=== PATIENT | female | born 1965 | race Caucasian/White ===

== ENCOUNTER 2019-05-01 11:33 | Inpatient (IN) | payer MEDICAID ==
[2019-05-01] MEDS ORDERED: Sodium Chloride 0.9% 10 ML Syringe FLUSH PRN ×2 (12:38→16:36)
[2019-05-01] MEDS ORDERED: Lactated Ringers 1,000 ML IV ONE ×2 (12:38→13:55)
--- NOTE | 2019-05-01 12:49 | EDM.PDOC ---
ED HPI GENERAL MEDICAL PROBLEM - General Chief Complaint: Gastrointestinal Problem Stated Complaint: LOOSE STOOL Time Seen by Provider: 05/01/19 12:28 Source of Information: Reports: Patient, Family, Provider, RN Notes Reviewed History Limitations: Reports: No Limitations - History of Present Illness INITIAL COMMENTS - FREE TEXT/NARRATIVE: 54-year-old female presents emergency department today complaint of nausea and diarrhea, she has been ill for the last 4 days describes some vague abdominal pain and cramping in nature stools have been loose and watery. Realize she just developed a fever today. Was initially evaluated in clinic and then sent to the emergency department by her primary care provider Dr. Casanova. 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 Denies: Fatigue HEENT: Reports: No Symptoms Respiratory: Reports: No Symptoms Cardiovascular: Reports: No Symptoms GI/Abdominal: Reports: Nausea. Denies: Vomiting : Reports: Other (Dark colored urine) Musculoskeletal: Reports: No Symptoms Skin: Reports: No Symptoms ED EXAM, GI/ABD - Physical Exam Exam: See Below Text/Narrative:: General: Female, not in any distress, skin slightly jaundiced appearing, alert and oriented x3 HEENT: head is atraumatic normocephalic, eyes pupils equal round reactive to light, sclera slight jaundice no conjunctivitis appreciated. Ears tympanic membranes clear and tang landmarks and light reflex are present bilaterally canals are clear. Nose no septal deviation, nares are clear, no blood present. Mouth mucosa is moist and pink no erythema or exudate noted in soft palate, tongue is midline uvula is midline, dentition is intact. Neck: Supple no thyromegaly no tracheal deviation. Nodes: Cervical nodes subclavicular nodes nontender no palpable lymphadenopathy noted. Lungs: clear to auscultation bilaterally with symmetrical respirations, no adventitious noise appreciated. CV: Regular rate and rhythm S1 and S2 appreciated no murmurs rubs or gallops noted. Abdomen: Soft, tender right upper quadrant, no palpable masses or organomegaly appreciated, no distention no guarding bowel sounds are present, . Neuro: GCS 15 Skin: Warm and dry, intact Extremities: No lower extremity edema appreciated, pedal pulse is +2. Course - Vital Signs Last Recorded V/S: Last Vital Signs Temp 101.1 F H 05/01/19 13:59 Pulse 76 05/01/19 15:15 Resp 16 05/01/19 15:15 BP 109/57 L 05/01/19 15:15 Pulse Ox 100 05/01/19 15:15 - Orders/Labs/Meds Orders: Active Orders 24 hr Category Date Time Status Peripheral IV Care [RC] . DIRECTED Care 05/01/19 12:38 Active Vital Signs [RC] Q1H Care 05/01/19 12:35 Active Abdomen Ltd [US] Stat Exams 05/01/19 14:21 Ordered CLOSTRIDIUM DIFFICILE BY PCR [RM] Stat Lab 05/01/19 12:39 Ordered CULTURE BLOOD [BC] Urgent Lab 05/01/19 12:40 Received CULTURE BLOOD [BC] Urgent Lab 05/01/19 12:45 Received CULTURE STOOL + SHIGATOX [RM] Stat Lab 05/01/19 12:39 Ordered CULTURE URINE [RM] Urgent Lab 05/01/19 15:23 Ordered WBC, STOOL [OP] Stat Lab 05/01/19 12:39 Ordered Lactated Ringers [Ringers, Lactated] 1,000 ml Med 05/01/19 13:55 Active IV BOLUS Sodium Chloride 0.9% [Saline Flush] Med 05/01/19 12:38 Active 10 ml FLUSH ASDIRECTED PRN Blood Culture x2 Reflex Set [OM.PC] Urgent Oth 05/01/19 12:35 Ordered Isolation [COMM] Stat Oth 05/01/19 12:40 Ordered Peripheral IV Insertion Adult [OM.PC] Urgent Oth 05/01/19 12:38 Ordered Medication Orders Lactated Ringer's (Ringers, Lactated) 1,000 mls @ 500 mls/hr IV BOLUS ONE Stop: 05/01/19 15:54 Last Admin: 05/01/19 13:58 Dose: 500 mls/hr Sodium Chloride (Saline Flush) 10 ml FLUSH ASDIRECTED PRN PRN Reason: Keep Vein Open Last Admin: 05/01/19 15:14 Dose: 10 ml Labs: Laboratory Tests 05/01/19 05/01/19 05/01/19 Range/Units 12:40 12:40 12:40 PT (9.5-12.0) sec INR (0.80-1.20) Lactic Acid 1.7 (0.4-2.0) mmol/L Lactate Dehydrogenase 1203 H (82-234) U/L C-Reactive Protein 26.41 H (0.0-0.3) mg/dL Lipase (73-393) U/L Procalcitonin 2.53 H* ng/mL Urine Color (YELLOW) Urine Appearance (CLEAR) Urine pH (5.0-8.0) Ur Specific [place] (1.008-1.030) Urine Protein (NEGATIVE) mg/dL Urine Glucose (UA) (NEGATIVE) mg/dL Urine Ketones (NEGATIVE) mg/dL Urine Occult Blood (NEGATIVE) Urine Nitrite (NEGATIVE) Urine Bilirubin (NEGATIVE) Urine Urobilinogen (0.2-1.0) EU/dL Ur Leukocyte Esterase (NEGATIVE) Urine RBC (0-5) Urine WBC (0-5) Ur Epithelial Cells Amorphous Sediment Urine Bacteria Urine Mucus Ethyl Alcohol mg/dL 05/01/19 05/01/19 05/01/19 Range/Units 12:40 12:40 12:40 PT 10.6 (9.5-12.0) sec INR 0.98 (0.80-1.20) Lactic Acid (0.4-2.0) mmol/L Lactate Dehydrogenase (82-234) U/L C-Reactive Protein (0.0-0.3) mg/dL Lipase 246 (73-393) U/L Procalcitonin ng/mL Urine Color (YELLOW) Urine Appearance (CLEAR) Urine pH (5.0-8.0) Ur Specific [place] (1.008-1.030) Urine Protein (NEGATIVE) mg/dL Urine Glucose (UA) (NEGATIVE) mg/dL Urine Ketones (NEGATIVE) mg/dL Urine Occult Blood (NEGATIVE) Urine Nitrite (NEGATIVE) Urine Bilirubin (NEGATIVE) Urine Urobilinogen (0.2-1.0) EU/dL Ur Leukocyte Esterase (NEGATIVE) Urine RBC (0-5) Urine WBC (0-5) Ur Epithelial Cells Amorphous Sediment Urine Bacteria Urine Mucus Ethyl Alcohol < 3 mg/dL 05/01/19 Range/Units 12:52 PT (9.5-12.0) sec INR (0.80-1.20) Lactic Acid (0.4-2.0) mmol/L Lactate Dehydrogenase (82-234) U/L C-Reactive Protein (0.0-0.3) mg/dL Lipase (73-393) U/L Procalcitonin ng/mL Urine Color Yellow (YELLOW) Urine Appearance Cloudy A (CLEAR) Urine pH 6.0 (5.0-8.0) Ur Specific [place] 1.025 (1.008-1.030) Urine Protein >=300 H (NEGATIVE) mg/dL Urine Glucose (UA) Negative (NEGATIVE) mg/dL Urine Ketones 15 H (NEGATIVE) mg/dL Urine Occult Blood Moderate H (NEGATIVE) Urine Nitrite Negative (NEGATIVE) Urine Bilirubin Small H (NEGATIVE) Urine Urobilinogen 0.2 (0.2-1.0) EU/dL Ur Leukocyte Esterase Negative (NEGATIVE) Urine RBC 5-10 H (0-5) Urine WBC 5-10 H (0-5) Ur Epithelial Cells Moderate Amorphous Sediment Few Urine Bacteria Moderate Urine Mucus Not seen Ethyl Alcohol mg/dL Meds: Medications Generic Name Dose Route Start Last Admin Trade Name Freq PRN Reason Stop Dose Admin Lactated Ringer's 1,000 mls @ 500 mls/hr 05/01/19 13:55 05/01/19 13:58 Ringers, Lactated IV 05/01/19 15:54 500 mls/hr BOLUS ONE Administration Sodium Chloride 10 ml 05/01/19 12:38 05/01/19 15:14 Saline Flush FLUSH 10 ml ASDIRECTED PRN Administration Keep Vein Open Discontinued Medications Generic Name Dose Route Start Last Admin Trade Name Freq PRN Reason Stop Dose Admin Lactated Ringer's 1,000 mls @ 999 mls/hr 05/01/19 12:38 05/01/19 12:53 Ringers, Lactated IV 05/01/19 13:38 999 mls/hr BOLUS ONE Administration Ketorolac Tromethamine 30 mg 05/01/19 14:23 05/01/19 14:34 Toradol IVPUSH 05/01/19 14:24 30 mg ONETIME ONE Administration Departure - Departure Time of Disposition: 15:25 Disposition: Admitted As Inpatient 66 Condition: Fair Clinical Impression: Tick-borne disease - Discharge Information Referrals: PCP,None [Primary Care Provider] - Forms: ED Department Discharge - My Orders Last 24 Hours: My Active Orders 05/01/19 12:35 Vital Signs [RC] Q1H Blood Culture x2 Reflex Set [OM.PC] Urgent 05/01/19 12:38 Peripheral IV Care [RC] . DIRECTED Sodium Chloride 0.9% [Saline Flush] 10 ml FLUSH ASDIRECTED PRN Peripheral IV Insertion Adult [OM.PC] Urgent 05/01/19 12:39 CLOSTRIDIUM DIFFICILE BY PCR [RM] Stat CULTURE STOOL + SHIGATOX [RM] Stat WBC, STOOL [OP] Stat 05/01/19 12:40 CULTURE BLOOD [BC] Urgent Isolation [COMM] Stat 05/01/19 12:45 CULTURE BLOOD [BC] Urgent 05/01/19 13:55 Lactated Ringers [Ringers, Lactated] 1,000 ml IV BOLUS 05/01/19 14:21 Abdomen Ltd [US] Stat 05/01/19 15:23 CULTURE URINE [RM] Urgent - Assessment/Plan Last 24 Hours: My Active Orders 05/01/19 12:35 Vital Signs [RC] Q1H Blood Culture x2 Reflex Set [OM.PC] Urgent 05/01/19 12:38 Peripheral IV Care [RC] . DIRECTED Sodium Chloride 0.9% [Saline Flush] 10 ml FLUSH ASDIRECTED PRN Peripheral IV Insertion Adult [OM.PC] Urgent 05/01/19 12:39 CLOSTRIDIUM DIFFICILE BY PCR [RM] Stat CULTURE STOOL + SHIGATOX [RM] Stat WBC, STOOL [OP] Stat 05/01/19 12:40 CULTURE BLOOD [BC] Urgent Isolation [COMM] Stat 05/01/19 12:45 CULTURE BLOOD [BC] Urgent 05/01/19 13:55 Lactated Ringers [Ringers, Lactated] 1,000 ml IV BOLUS 05/01/19 14:21 Abdomen Ltd [US] Stat 05/01/19 15:23 CULTURE URINE [RM] Urgent Plan: Assessment Acuity = acute Site and laterality = tick borne illness Etiology = Ixodes scapularis Manifestations = diarrhea, hyperbilirubinemia Location of injury = Home Lab values = lab work from clinic reveals sodium at 122 consistent hyponatremia potassium 3.2 consistent with hypokalemia AST elevated 144 ALT elevated 48 total bilirubin elevated 1.9 consistent hyperbilirubinemia platelets low at 37 consistent with thrombocytopenia LDH elevated 1203, CRP elevated 26.4 pro- calcitonin elevated 2.5 urinalysis reveals 5-10 RBCs and 5-10 WBCs consistent hematuria and pyuria respectively small amount of bilirubin in the urine Plan Called discussed case hospitalist on-call at 1520 he kindly agreed to come and evaluate patient emergency department for admission This note was dictated using [employer] voice recognition software please call with any questions on syntax or grammar.
[2019-05-01] MEDS ORDERED: Ketorolac 30 MG/ML SDV IVPUSH ONE (14:23)
--- NOTE | 2019-05-01 15:35 | PCM.HP.2 ---
H&P History of Present Illness - General Date of Service: 05/01/19 Admit Problem/Dx: Admission Diagnosis/Problem Admission Diagnosis/Problem Cholecystitis Source of Information: Patient, Family, Provider, RN Notes Reviewed History Limitations: Reports: No Limitations - History of Present Illness Initial Comments - Free Text/Narative: Ms. Goode is a 54-year-old woman who was admitted through the emergency department with fever, myalgias, weakness, secondary to anaplasmosis and possible cholecystitis. She has not felt well over the past 5 days with progressive fever weakness myalgias and headache. She presented to the emergency department today for further evaluation. She also reports history of nausea and diarrhea with 3-4 watery stools per day. On evaluation in the emergency department she is noted to have a low white count as well as significant thrombocytopenia. Bilirubin is elevated at 1.9 and there is mild elevation in transaminase levels. Abdominal ultrasound was obtained showing evidence of sludge within the gallbladder as well as a large free-floating stone , gallbladder wall thickening, but no ductal dilatation. [place] potential for tick exposure from her property as well as cats going in and out of the house. 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 Neurological History: Reports: Headaches, Chronic, Migraines Psychiatric History: Reports: Anxiety - Past Surgical History HEENT Surgical History: Reports: Adenoidectomy, Eye Surgery, Laser Surgery, LASIK, Tonsillectomy Social & Family History - Tobacco Use Smoking Status *Q: Never Smoker Second Hand Smoke Exposure: No - Caffeine Use Caffeine Use: Reports: Tea Other Caffeine Use: large mug of tea - Recreational Drug Use Recreational Drug Use: No H&P Review of Systems - Review of Systems: Review Of Systems: See Below General: Reports: Fever, Chills, Malaise, Weakness, Fatigue, Diaphoresis, Decreased Appetite HEENT: Reports: Headaches. Denies: Hearing Changes, Sinus Congestion, Sore Throat, Vertigo, Visual Changes Pulmonary: Reports: No Symptoms Cardiovascular: Reports: No Symptoms Gastrointestinal: Reports: Abdominal Pain, Anorexia, Diarrhea, Nausea. Denies: Black Stool, Bloody Stool, Constipation, Difficulty Swallowing, Distension, Vomiting Genitourinary: Reports: No Symptoms Musculoskeletal: Reports: Muscle Pain, Muscle Stiffness Skin: Reports: No Symptoms Psychiatric: Reports: No Symptoms Neurological: Reports: No Symptoms Hematologic/Lymphatic: Reports: No Symptoms Immunologic: Reports: No Symptoms Exam - Exam Exam: See Below - Vital Signs Vital Signs: Last Vital Signs Temp 101.1 F H 05/01/19 13:59 Pulse 76 05/01/19 15:15 Resp 16 05/01/19 15:15 BP 109/57 L 05/01/19 15:15 Pulse Ox 100 05/01/19 15:15 Weight: 150 lb - Exam General: Alert, Oriented, Cooperative, Moderate Distress HEENT: Conjunctiva Clear, Hearing Intact, Normal Nasal Septum, Posterior Pharynx Clear, Pupils Equal. No: Mucosa Moist & [place] Neck: Supple, Trachea Midline, +2 Carotid Pulse wo Bruit Lungs: Clear to Auscultation, Normal Respiratory Effort Cardiovascular: Regular Rate, Regular Rhythm, Normal S1, Normal S2. No: Systolic Murmur, Diastolic Murmur GI/Abdominal Exam: Soft, No Organomegaly, Tender (Right upper quadrant). No: Distended, Guarding, Rigid, Rebound Back Exam: Normal Inspection, Full Range of Motion, CVA Tenderness (R), CVA Tenderness (L), Vertebral Tenderness Extremities: Non-Tender, No Pedal Edema Skin: Warm, Dry, Intact Neurological: Cranial Nerves Intact, Strength Equal Bilateral, Normal Speech, Normal Tone, Sensation Intact. No: Focal Deficit Neuro Extensive - Mental Status: Alert, Oriented x3, Normal Mood/Affect, Normal Cognition, Memory Intact - Patient Data Lab Results Last 24 hrs: Laboratory Results - last 24 hr 05/01/19 05/01/19 05/01/19 Range/Units 12:40 12:40 12:40 PT (9.5-12.0) sec INR (0.80-1.20) Lactic Acid 1.7 (0.4-2.0) mmol/L Lactate Dehydrogenase 1203 H (82-234) U/L C-Reactive Protein 26.41 H (0.0-0.3) mg/dL Lipase (73-393) U/L Procalcitonin 2.53 H* ng/mL Urine Color (YELLOW) Urine Appearance (CLEAR) Urine pH (5.0-8.0) Ur Specific [place] (1.008-1.030) Urine Protein (NEGATIVE) mg/dL Urine Glucose (UA) (NEGATIVE) mg/dL Urine Ketones (NEGATIVE) mg/dL Urine Occult Blood (NEGATIVE) Urine Nitrite (NEGATIVE) Urine Bilirubin (NEGATIVE) Urine Urobilinogen (0.2-1.0) EU/dL Ur Leukocyte Esterase (NEGATIVE) Urine RBC (0-5) Urine WBC (0-5) Ur Epithelial Cells Amorphous Sediment Urine Bacteria Urine Mucus Ethyl Alcohol mg/dL 05/01/19 05/01/19 05/01/19 Range/Units 12:40 12:40 12:40 PT 10.6 (9.5-12.0) sec INR 0.98 (0.80-1.20) Lactic Acid (0.4-2.0) mmol/L Lactate Dehydrogenase (82-234) U/L C-Reactive Protein (0.0-0.3) mg/dL Lipase 246 (73-393) U/L Procalcitonin ng/mL Urine Color (YELLOW) Urine Appearance (CLEAR) Urine pH (5.0-8.0) Ur Specific [place] (1.008-1.030) Urine Protein (NEGATIVE) mg/dL Urine Glucose (UA) (NEGATIVE) mg/dL Urine Ketones (NEGATIVE) mg/dL Urine Occult Blood (NEGATIVE) Urine Nitrite (NEGATIVE) Urine Bilirubin (NEGATIVE) Urine Urobilinogen (0.2-1.0) EU/dL Ur Leukocyte Esterase (NEGATIVE) Urine RBC (0-5) Urine WBC (0-5) Ur Epithelial Cells Amorphous Sediment Urine Bacteria Urine Mucus Ethyl Alcohol < 3 mg/dL 05/01/19 Range/Units 12:52 PT (9.5-12.0) sec INR (0.80-1.20) Lactic Acid (0.4-2.0) mmol/L Lactate Dehydrogenase (82-234) U/L C-Reactive Protein (0.0-0.3) mg/dL Lipase (73-393) U/L Procalcitonin ng/mL Urine Color Yellow (YELLOW) Urine Appearance Cloudy A (CLEAR) Urine pH 6.0 (5.0-8.0) Ur Specific [place] 1.025 (1.008-1.030) Urine Protein >=300 H (NEGATIVE) mg/dL Urine Glucose (UA) Negative (NEGATIVE) mg/dL Urine Ketones 15 H (NEGATIVE) mg/dL Urine Occult Blood Moderate H (NEGATIVE) Urine Nitrite Negative (NEGATIVE) Urine Bilirubin Small H (NEGATIVE) Urine Urobilinogen 0.2 (0.2-1.0) EU/dL Ur Leukocyte Esterase Negative (NEGATIVE) Urine RBC 5-10 H (0-5) Urine WBC 5-10 H (0-5) Ur Epithelial Cells Moderate Amorphous Sediment Few Urine Bacteria Moderate Urine Mucus Not seen Ethyl Alcohol mg/dL *Q Meaningful Use (ADM) - VTE Risk Assess *Q Each Risk Factor Represents 1 Point: Age 41 - 59 years Total Score 1 Point Risk Factors: 1 Each Risk Factor Represents 2 Points: Patient confined to bed greater than 72 hours Total Score 2 Point Risk Factors: 2 Each Risk Factor Represents 3 Points: None Total Score 3 Point Risk Factors: 0 Each Risk Factor Represents 5 Points: None Total Score 5 Point Risk Factors: 0 Venous Thromboembolism Risk Factor Score *Q: 3 Problem List Initiated/Reviewed/Updated: Yes Orders Last 24hrs: Active Orders 24 hr Category Date Time Status Patient Status Manage Transfer [TRANSFER] Routine ADT 05/01/19 15:27 Active Peripheral IV Care [RC] . DIRECTED Care 05/01/19 12:38 Active Vital Signs [RC] Q1H Care 05/01/19 12:35 Active Abdomen Ltd [US] Stat Exams 05/01/19 14:21 Ordered CLOSTRIDIUM DIFFICILE BY PCR [RM] Stat Lab 05/01/19 12:39 Ordered CULTURE BLOOD [BC] Urgent Lab 05/01/19 12:40 Received CULTURE BLOOD [BC] Urgent Lab 05/01/19 12:45 Received CULTURE STOOL + SHIGATOX [RM] Stat Lab 05/01/19 12:39 Ordered CULTURE URINE [RM] Urgent Lab 05/01/19 15:26 Received WBC, STOOL [OP] Stat Lab 05/01/19 12:39 Ordered Lactated Ringers [Ringers, Lactated] 1,000 ml Med 05/01/19 13:55 Active IV BOLUS Sodium Chloride 0.9% [Saline Flush] Med 05/01/19 12:38 Active 10 ml FLUSH ASDIRECTED PRN Blood Culture x2 Reflex Set [OM.PC] Urgent Oth 05/01/19 12:35 Ordered Isolation [COMM] Stat Oth 05/01/19 12:40 Ordered Peripheral IV Insertion Adult [OM.PC] Urgent Oth 05/01/19 12:38 Ordered Resuscitation Status Routine Resus Stat 05/01/19 15:29 Ordered Medication Orders Lactated Ringer's (Ringers, Lactated) 1,000 mls @ 500 mls/hr IV BOLUS ONE Stop: 05/01/19 15:54 Last Admin: 05/01/19 13:58 Dose: 500 mls/hr Sodium Chloride (Saline Flush) 10 ml FLUSH ASDIRECTED PRN PRN Reason: Keep Vein Open Last Admin: 05/01/19 15:14 Dose: 10 ml Assessment/Plan Comment:: ASSESSMENT AND PLAN ANAPLASMOSIS-fever, myalgias, headache, leukopenia, thrombocytopenia, and transaminase elevation would also fit with this diagnosis. She is at risk for exposure to ticks from her cats as well as their property. -IV fluids for hydration -Doxycycline 100 mg IV every 12 hours POSSIBLE CHOLECYSTITIS-modest elevation in bilirubin, evidence of gallbladder wall thickening noted on ultrasound. No evidence of ductal dilatation identified by ultrasound -Unasyn 1.5 g IV every 6 hours DIARRHEA-no history of recent antibiotic use -Stool studies including C. difficile pending MAINTENANCE ISSUES -DVT prophylaxis; Lovenox 40 mg subcutaneous daily -GI prophylaxis; Protonix 40 mg by mouth daily -[place] catheter; not indicated -Nutrition; regular diet -Nicotine dependence; not required CODE STATUS-FULL CODE ADMISSION STATUS-patient will be admitted to inpatient status, expect at least a 2 night hospital stay for evaluation and management of problems as outlined above. At the time of this admission I do not reasonably expected evaluation and management of this problem will require more than a 96 hour hospital stay. DISPOSITION-anticipate discharge to home after the hospital stay. PRIMARY CARE PROVIDER- - Mortality Measure Prognosis:: Good
--- NOTE | 2019-05-01 16:30 | CRLUS ---
INDICATION: Right upper quadrant pain. COMPARISON: None available. TECHNIQUE: Ultrasound examination of the right upper quadrant was performed. FINDINGS: There is cholelithiasis, with dominant 2.5 centimeter calculus in the gallbladder. A small amount of sludge is also present in the dependent portion of the gallbladder. The gallbladder wall is mildly thickened at 4 millimeters. The common bile duct is normal in caliber at 4 mm. The pancreatic head and body were examined, and these are normal in appearance. The abdominal aorta and visualized portions of the inferior vena cava are normal in appearance. The liver shows no sign of mass or contour abnormality, and there is no sign of ascites. The right kidney is unremarkable. IMPRESSION: Cholelithiasis, with a dominant 2.5 centimeter calculus in the gallbladder. Mild thickening of the gallbladder wall suggests acute cholecystitis. No sign of biliary ductal dilatation. Dictated by Larry Ortiz MD @ May 01 2019 4:25PM Signed by Dr. Larry Ortiz @ May 01 2019 4:28PM
[2019-05-01] MEDS ORDERED: oxyCODONE 5 MG Tab PO PRN (16:36)
[2019-05-01] MEDS ORDERED: Ondansetron 4 MG/2 ML SDV IV PRN (16:36)
[2019-05-01] MEDS: Doxycycline 100 MG in Sodium Chloride 0.9% 100 ML IV SCH (17:18)
[2019-05-01] MEDS: Pantoprazole 40 MG Tab.CR PO SCH (17:18)
[2019-05-01] MEDS: Sodium Chloride 0.9% 1,000 ML IV SCH (17:21)
[2019-05-01] MEDS: Ampicillin/Sulbactam Na 1.5 GM in Sodium Chloride 0.9% 50 ML IV SCH ×2 (18:23→23:21)
[2019-05-01] MEDS: Acetaminophen 325 MG Tab PO PRN ×2 (19:21→23:21)
[2019-05-01] MEDS ORDERED: Enoxaparin 40 MG/0.4 ML Syringe SUBCUT SCH (20:00)
[2019-05-02] MEDS: Sodium Chloride 0.9% 1,000 ML IV SCH ×2 (02:14→12:21)
[2019-05-02] MEDS: Acetaminophen 325 MG Tab PO PRN ×2 (03:24→19:19)
[2019-05-02] MEDS: Doxycycline 100 MG in Sodium Chloride 0.9% 100 ML IV SCH ×2 (04:45→17:49)
[2019-05-02] MEDS: Ampicillin/Sulbactam Na 1.5 GM in Sodium Chloride 0.9% 50 ML IV SCH ×3 (05:50→19:12)
[2019-05-02] MEDS: Pantoprazole 40 MG Tab.CR PO SCH (07:47)
[2019-05-02] MEDS ORDERED: Potassium Chloride 20 MEQ Tab.ER PO ONE ×2 (10:00→17:00)
[2019-05-02] MEDS ORDERED: Sodium Chloride 0.9% 1,000 ML IV SCH (12:30)
--- NOTE | 2019-05-02 12:31 | PCM.PN ---
- General Info Date of Service: 05/02/19 Subjective Update: Ms. Goode has improved over the last 24 hours since admission. She did experience temperature elevation last night after admission but is been afebrile since then. Headache and myalgias have improved, she currently experiences mild persistent nausea. She denies any right upper quadrant abdominal pain this morning and her bilirubin has come down from admission. Functional Status: Reports: Tolerating Diet, Ambulating, Urinating - Review of Systems General: Reports: Weakness, Malaise. Denies: Fever, Chills Pulmonary: Reports: No Symptoms Cardiovascular: Reports: No Symptoms Gastrointestinal: Reports: No Symptoms Genitourinary: Reports: No Symptoms - Patient Data Vitals - Most Recent: Last Vital Signs Temp 98.3 F 05/02/19 11:00 Pulse 57 L 05/02/19 11:00 Resp 14 05/02/19 11:00 BP 108/42 L 05/02/19 11:00 Pulse Ox 95 05/02/19 11:00 Weight - Most Recent: 149 lb 9.6 oz I&O - Last 24 Hours: Intake & Output 05/01/19 05/02/19 05/02/19 22:59 06:59 14:59 Intake Total 450 2251 290 Output Total 600 350 600 Balance -150 1901 -310 Lab Results Last 24 Hours: Laboratory Results - last 24 hr 05/01/19 05/01/19 05/01/19 Range/Units 12:40 12:40 12:40 WBC (4.5-11.0) K/uL RBC (3.30-5.50) M/uL Hgb (12.0-15.0) g/dL Hct (36.0-48.0) % MCV (80-98) fL MCH (27-31) pg MCHC (32-36) % Plt Count (150-400) K/uL Neut % (Auto) (36-66) % Lymph % (Auto) (24-44) % [place] % (Auto) (2-6) % Eos % (Auto) (2-4) % Baso % (Auto) (0-1) % PT (9.5-12.0) sec INR (0.80-1.20) Sodium (140-148) mmol/L Potassium (3.6-5.2) mmol/L Chloride (100-108) mmol/L Carbon Dioxide (21-32) mmol/L Anion Gap (5.0-14.0) mmol/L BUN (7-18) mg/dL Creatinine (0.6-1.0) mg/dL Est Cr Clr Drug Dosing mL/min Estimated GFR (MDRD) (>60) Glucose (74-106) mg/dL Lactic Acid 1.7 (0.4-2.0) mmol/L Calcium (8.5-10.1) mg/dL Magnesium (1.8-2.4) mg/dL Total Bilirubin (0.2-1.0) mg/dL AST (15-37) U/L ALT (12-78) U/L Alkaline Phosphatase (46-116) U/L Lactate Dehydrogenase 1203 H (82-234) U/L C-Reactive Protein 26.41 H (0.0-0.3) mg/dL Total Protein (6.4-8.2) g/dL Albumin (3.4-5.0) g/dL Globulin (2.3-3.5) g/dL Albumin/Globulin Ratio (1.2-2.2) Lipase (73-393) U/L Procalcitonin 2.53 H* ng/mL Urine Color (YELLOW) Urine Appearance (CLEAR) Urine pH (5.0-8.0) Ur Specific [place] (1.008-1.030) Urine Protein (NEGATIVE) mg/dL Urine Glucose (UA) (NEGATIVE) mg/dL Urine Ketones (NEGATIVE) mg/dL Urine Occult Blood (NEGATIVE) Urine Nitrite (NEGATIVE) Urine Bilirubin (NEGATIVE) Urine Urobilinogen (0.2-1.0) EU/dL Ur Leukocyte Esterase (NEGATIVE) Urine RBC (0-5) Urine WBC (0-5) Ur Epithelial Cells Amorphous Sediment Urine Bacteria Urine Mucus Ethyl Alcohol mg/dL 05/01/19 05/01/19 05/01/19 Range/Units 12:40 12:40 12:40 WBC (4.5-11.0) K/uL RBC (3.30-5.50) M/uL Hgb (12.0-15.0) g/dL Hct (36.0-48.0) % MCV (80-98) fL MCH (27-31) pg MCHC (32-36) % Plt Count (150-400) K/uL Neut % (Auto) (36-66) % Lymph % (Auto) (24-44) % [place] % (Auto) (2-6) % Eos % (Auto) (2-4) % Baso % (Auto) (0-1) % PT 10.6 (9.5-12.0) sec INR 0.98 (0.80-1.20) Sodium (140-148) mmol/L Potassium (3.6-5.2) mmol/L Chloride (100-108) mmol/L Carbon Dioxide (21-32) mmol/L Anion Gap (5.0-14.0) mmol/L BUN (7-18) mg/dL Creatinine (0.6-1.0) mg/dL Est Cr Clr Drug Dosing mL/min Estimated GFR (MDRD) (>60) Glucose (74-106) mg/dL Lactic Acid (0.4-2.0) mmol/L Calcium (8.5-10.1) mg/dL Magnesium (1.8-2.4) mg/dL Total Bilirubin (0.2-1.0) mg/dL AST (15-37) U/L ALT (12-78) U/L Alkaline Phosphatase (46-116) U/L Lactate Dehydrogenase (82-234) U/L C-Reactive Protein (0.0-0.3) mg/dL Total Protein (6.4-8.2) g/dL Albumin (3.4-5.0) g/dL Globulin (2.3-3.5) g/dL Albumin/Globulin Ratio (1.2-2.2) Lipase 246 (73-393) U/L Procalcitonin ng/mL Urine Color (YELLOW) Urine Appearance (CLEAR) Urine pH (5.0-8.0) Ur Specific [place] (1.008-1.030) Urine Protein (NEGATIVE) mg/dL Urine Glucose (UA) (NEGATIVE) mg/dL Urine Ketones (NEGATIVE) mg/dL Urine Occult Blood (NEGATIVE) Urine Nitrite (NEGATIVE) Urine Bilirubin (NEGATIVE) Urine Urobilinogen (0.2-1.0) EU/dL Ur Leukocyte Esterase (NEGATIVE) Urine RBC (0-5) Urine WBC (0-5) Ur Epithelial Cells Amorphous Sediment Urine Bacteria Urine Mucus Ethyl Alcohol < 3 mg/dL 10/16/19 10/17/19 10/17/19 Range/Units 12:52 05:50 05:50 WBC 4.0 L (4.5-11.0) K/uL RBC 2.91 L (3.30-5.50) M/uL Hgb 9.0 L (12.0-15.0) g/dL Hct 25.5 L (36.0-48.0) % MCV 88 (80-98) fL MCH 31 (27-31) pg MCHC 35 (32-36) % Plt Count 37 L (150-400) K/uL Neut % (Auto) 65 (36-66) % Lymph % (Auto) 20 L (24-44) % [place] % (Auto) 12 H (2-6) % Eos % (Auto) 1 L (2-4) % Baso % (Auto) 3 H (0-1) % PT (9.5-12.0) sec INR (0.80-1.20) Sodium 130 L (140-148) mmol/L Potassium 3.0 L (3.6-5.2) mmol/L Chloride 96 L (100-108) mmol/L Carbon Dioxide 26 (21-32) mmol/L Anion Gap 11.0 (5.0-14.0) mmol/L BUN 13 (7-18) mg/dL Creatinine 0.9 (0.6-1.0) mg/dL Est Cr Clr Drug Dosing 66.90 mL/min Estimated GFR (MDRD) > 60 (>60) Glucose 93 (74-106) mg/dL Lactic Acid (0.4-2.0) mmol/L Calcium 7.2 L (8.5-10.1) mg/dL Magnesium 1.9 (1.8-2.4) mg/dL Total Bilirubin 1.2 H (0.2-1.0) mg/dL AST 124 H (15-37) U/L ALT 50 (12-78) U/L Alkaline Phosphatase 46 (46-116) U/L Lactate Dehydrogenase (82-234) U/L C-Reactive Protein (0.0-0.3) mg/dL Total Protein 5.2 L (6.4-8.2) g/dL Albumin 2.4 L (3.4-5.0) g/dL Globulin 2.8 (2.3-3.5) g/dL Albumin/Globulin Ratio 0.9 L (1.2-2.2) Lipase (73-393) U/L Procalcitonin ng/mL Urine Color Yellow (YELLOW) Urine Appearance Cloudy A (CLEAR) Urine pH 6.0 (5.0-8.0) Ur Specific [place] 1.025 (1.008-1.030) Urine Protein >=300 H (NEGATIVE) mg/dL Urine Glucose (UA) Negative (NEGATIVE) mg/dL Urine Ketones 15 H (NEGATIVE) mg/dL Urine Occult Blood Moderate H (NEGATIVE) Urine Nitrite Negative (NEGATIVE) Urine Bilirubin Small H (NEGATIVE) Urine Urobilinogen 0.2 (0.2-1.0) EU/dL Ur Leukocyte Esterase Negative (NEGATIVE) Urine RBC 5-10 H (0-5) Urine WBC 5-10 H (0-5) Ur Epithelial Cells Moderate Amorphous Sediment Few Urine Bacteria Moderate Urine Mucus Not seen Ethyl Alcohol mg/dL [place] Results Last 24 Hours: Microbiology 05/01/19 21:35 Clostridioides difficile (PCR) - Final Stool / Feces NEGATIVE CDIFF TOXIN 05/01/19 21:35 Stool for WBCs - Final Stool / Feces NO WBC SEEN REFERENCE RANGE: NO WBC SEEN Med Orders - Current: Current Medications Acetaminophen (Tylenol) 650 mg PO Q4H PRN PRN Reason: Pain (Mild 1-3)/fever Last Admin: 05/02/19 03:24 Dose: 650 mg Ampicillin Sodium/Sulbactam (Sodium 1.5 gm/ Sodium Chloride) 50 mls @ 100 mls/ hr IV Q6H [facility] Last Admin: 05/02/19 12:21 Dose: 100 mls/hr Doxycycline Hyclate 100 mg/ (Sodium Chloride) 100 mls @ 100 mls/hr IV Q12H [facility] Last Admin: 05/02/19 04:45 Dose: 100 mls/hr Sodium Chloride (Normal Saline) 1,000 mls @ 50 mls/hr IV ASDIRECTED [facility] Ondansetron HCl (Zofran) 4 mg IV Q4H PRN PRN Reason: Nausea/Vomiting Oxycodone HCl (Oxycodone) 5 mg PO Q4H PRN PRN Reason: Pain (moderate 4-6) Pantoprazole Sodium (Protonix) 40 mg PO ACBREAKFAST [facility] Last Admin: 05/02/19 07:47 Dose: 40 mg Potassium Chloride (Klor-Con M20) 40 meq PO ONETIME ONE Stop: 05/02/19 17:01 Sodium Chloride (Saline Flush) 10 ml FLUSH ASDIRECTED PRN PRN Reason: Keep Vein Open Discontinued Medications Enoxaparin Sodium (Lovenox) 40 mg SUBCUT Q24H [facility] Last Admin: 05/01/19 19:21 Dose: 40 mg Lactated Ringer's (Ringers, Lactated) 1,000 mls @ 999 mls/hr IV BOLUS ONE Stop: 05/01/19 13:38 Last Admin: 05/01/19 12:53 Dose: 999 mls/hr Lactated Ringer's (Ringers, Lactated) 1,000 mls @ 500 mls/hr IV BOLUS ONE Stop: 05/01/19 15:54 Last Admin: 05/01/19 13:58 Dose: 500 mls/hr Sodium Chloride (Normal Saline) 1,000 mls @ 125 mls/hr IV ASDIRECTED [facility] Last Admin: 05/02/19 12:21 Dose: 125 mls/hr Ketorolac Tromethamine (Toradol) 30 mg IVPUSH ONETIME ONE Stop: 05/01/19 14:24 Last Admin: 05/01/19 14:34 Dose: 30 mg Potassium Chloride (Klor-Con M20) 40 meq PO ONETIME ONE Stop: 05/02/19 10:01 Last Admin: 05/02/19 09:55 Dose: 40 meq Sodium Chloride (Saline Flush) 10 ml FLUSH ASDIRECTED PRN PRN Reason: Keep Vein Open Last Admin: 05/01/19 15:14 Dose: 10 ml - Exam General: Alert, Oriented, Cooperative, Mild Distress Lungs: Clear to Auscultation, Normal Respiratory Effort Cardiovascular: Regular Rate, Regular Rhythm, No Murmurs GI/Abdominal Exam: Soft, Non-Tender, No Organomegaly, No Distention Extremities: Non-Tender, No Pedal Edema - Problem List Review Problem List Initiated/Reviewed/Updated: Yes - My Orders Last 24 Hours: My Active Orders 05/01/19 15:29 Resuscitation Status Routine 05/01/19 16:36 Patient Status [ADT] Routine Ambulate [RC] QID Height and Weight [RC] 0500 Intake and Output [RC] QSHIFT Notify Provider Vital Signs [RC] ASDIRECTED Oxygen Therapy [RC] PRN Peripheral IV Care [RC] . DIRECTED Up ad [place] [RC] ASDIRECTED Up to Chair [RC] QID VTE/DVT Education [RC] Per Unit Routine Vital Signs [RC] Q4H Acetaminophen [Tylenol] 650 mg PO Q4H PRN Ondansetron [Zofran] 4 mg IV Q4H PRN Sodium Chloride 0.9% [Saline Flush] 10 ml FLUSH ASDIRECTED PRN oxyCODONE 5 mg PO Q4H PRN Peripheral IV Insertion Adult [OM.PC] Routine 05/01/19 17:00 Doxycycline [Vibramycin] 100 mg Sodium Chloride 0.9% [Normal Saline] 100 ml IV Q12H 05/01/19 18:00 Ampicillin/Sulbactam Na [Unasyn] 1.5 gm Sodium Chloride 0.9% [Normal Saline] 50 ml IV Q6H Pantoprazole [ProTONIX] 40 mg PO ACBREAKFAST 05/01/19 Lunch Regular Diet [DIET] 05/02/19 12:30 Sodium Chloride 0.9% @ 50 MLS/HR(1000ml) Sodium Chloride 0.9% [Normal Saline] 1 ,000 ml IV ASDIRECTED 05/02/19 17:00 Potassium Chloride [Klor-Con M20] 40 meq PO ONETIME ONE 05/03/19 05:00 CBC WITH AUTO DIFF [HEME] Timed COMPREHENSIVE METABOLIC PN,CMP [CHEM] Timed - Plan Plan:: ASSESSMENT AND PLAN ANAPLASMOSIS-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 Headache, myalgias, and nausea have all improved. -IV fluids for hydration -Doxycycline 100 mg IV every 12 hours CHOLECYSTITIS-modest elevation in bilirubin, evidence of gallbladder wall thickening noted on ultrasound. No evidence of ductal dilatation identified by ultrasound. Nausea and right upper quadrant abdominal pain have improved from admission -Unasyn 1.5 g IV every 6 hours DIARRHEA-diarrhea improved, C. difficile is negative, other stool studies are pending -Stool cultures pending MAINTENANCE ISSUES -DVT prophylaxis; Lovenox 40 mg subcutaneous daily -GI prophylaxis; Protonix 40 mg by mouth daily -[place] catheter; not indicated -Nutrition; regular diet -Nicotine dependence; not required CODE STATUS-FULL CODE ADMISSION STATUS-patient will be admitted to inpatient status, expect at least a 2 night hospital stay for evaluation and management of problems as outlined above. At the time of this admission I do not reasonably expected evaluation and management of this problem will require more than a 96 hour hospital stay. DISPOSITION-anticipate discharge to home after the hospital stay. PRIMARY CARE PROVIDER-
[2019-05-02] MEDS: Lactobacillus Rhamnosus GG (Probiotic) Cap PO SCH ×2 (16:19→20:31)
[2019-05-03] MEDS: Doxycycline 100 MG in Sodium Chloride 0.9% 100 ML IV SCH (04:04)
[2019-05-03] MEDS: Ampicillin/Sulbactam Na 1.5 GM in Sodium Chloride 0.9% 50 ML IV SCH ×4 (05:13→11:46)
[2019-05-03] MEDS: Pantoprazole 40 MG Tab.CR PO SCH (07:57)
[2019-05-03] MEDS ORDERED: Potassium Chloride 20 MEQ Tab.ER PO ONE (09:00)
[2019-05-03] MEDS: Lactobacillus Rhamnosus GG (Probiotic) Cap PO SCH (09:11)
--- NOTE | 2019-05-03 11:57 | PCM.DCSUM1 ---
Discharge Summary - Hospital Course Brief History: Ms. Goode is a 54-year-old woman who was admitted through the emergency department with weakness, dehydration, myalgias, fever, and right upper quadrant abdominal pain, secondary to anaplasmosis and cholecystitis. - Discharge Data Discharge Date: 05/03/19 Discharge Disposition: Home, Self-Care 01 Condition: Fair - Referral to Home Health Primary Care Physician: PCP None - Discharge Diagnosis/Problem(s) (1) Anaplasmosis SNOMED Code(s): 303929517 ICD Code: A77.49 - OTHER EHRLICHIOSIS Status: Acute Current Visit: Yes (2) Cholecystitis SNOMED Code(s): 62037171 ICD Code: K81.9 - CHOLECYSTITIS, UNSPECIFIED Status: Acute Current Visit : Yes (3) Thrombocytopenia SNOMED Code(s): 075342492 ICD Code: D69.6 - THROMBOCYTOPENIA, UNSPECIFIED Status: Acute Current Visit: Yes - Patient Summary/Data Hospital Course: Ms. Goode is a 54-year-old woman who was admitted through the emergency department with fever, myalgias, weakness, secondary to anaplasmosis and cholecystitis. She has not felt well over the past 5 days with progressive fever weakness myalgias and headache. She presented to the emergency department today for further evaluation. She also reports history of nausea and diarrhea with 3-4 watery stools per day. On evaluation in the emergency department she is noted to have a low white count as well as significant thrombocytopenia. Bilirubin was elevated at 1.9 and there is mild elevation in transaminase levels. Abdominal ultrasound was obtained showing evidence of sludge within the gallbladder as well as a large free-floating stone, gallbladder wall thickening , but no ductal dilatation. [place] potential for tick exposure from her property as well as cats going in and out of the house. On admission she was given IV fluids for hydration as well as IV antibiotics with doxycycline for the anaplasmosis and Unasyn for the cholecystitis. Over the course of her hospital stay she noted significant improvement with almost total resolution of the myalgias. Headaches had improved by the time of discharge and her right upper quadrant pain was better but not totally resolved. She was tolerating a regular diet and was up and ambulating around her room. Stool studies were obtained because of diarrhea and were negative for infectious causes of diarrhea. She is aware that she may require further evaluation and possible surgery for her cholecystitis. This would be better and safer after she has recovered from her current illness. Activity will be as tolerated and she will resume her usual diet. She will be discharged home on antibiotic therapy with doxycycline for an additional 5 days and Augmentin for an additional 5 days as well. She will be on probiotic therapy twice daily. Follow-up appointment will be scheduled with her primary care provider within one week. - Patient Instructions Diet: Usual Diet as Tolerated Activity: As Tolerated Other/Special Instructions: Please schedule follow-up appointment with primary care provider within one week. - Discharge Plan *PRESCRIPTION DRUG MONITORING PROGRAM REVIEWED*: Not Applicable *COPY OF PRESCRIPTION DRUG MONITORING REPORT IN PATIENT ZARIA: Not Applicable Prescriptions/Med Rec: Amoxicillin/Potassium Clav [Augmentin 875-125 Tablet] 1 each PO BID #10 tablet Doxycycline [Vibramycin] 100 mg PO BID #10 cap Lactobacillus Rhamnosus GG [Culturelle] 1 cap PO BID #60 cap Home Medications: Home Meds Amoxicillin/Potassium Clav [Augmentin 875-125 Tablet] 1 each PO BID #10 tablet 05/03/19 [Rx] Doxycycline [Vibramycin] 100 mg PO BID #10 cap 05/03/19 [Rx] Lactobacillus Rhamnosus GG [Culturelle] 1 cap PO BID #60 cap 05/03/19 [Rx] Referrals: Marietta Casanova MD [Ordering Only Provider] - - Discharge Summary/Plan Comment DC Time >30 min.: No - Patient Data Vitals - Most Recent: Last Vital Signs Temp 96.5 F 05/03/19 07:46 Pulse 58 L 05/03/19 07:46 Resp 16 05/03/19 07:46 BP 92/52 L 05/03/19 07:46 Pulse Ox 98 05/03/19 07:46 Weight - Most Recent: 150 lb 6.4 oz I&O - Last 24 hours: Intake & Output 05/02/19 05/03/19 05/03/19 22:59 06:59 14:59 Intake Total 2331 756 1256 Output Total 900 1000 500 Balance 1431 -244 756 Lab Results - Last 24 hrs: Laboratory Results - last 24 hr 05/03/19 05/03/19 Range/Units 04:15 04:15 WBC 5.9 (4.5-11.0) K/uL RBC 3.22 L (3.30-5.50) M/uL Hgb 10.0 L (12.0-15.0) g/dL Hct 28.5 L (36.0-48.0) % MCV 89 (80-98) fL MCH 31 (27-31) pg MCHC 35 (32-36) % Plt Count 62 L (150-400) K/uL Neut % (Auto) 48 (36-66) % Lymph % (Auto) 35 (24-44) % [place] % (Auto) 12 H (2-6) % Eos % (Auto) 1 L (2-4) % Baso % (Auto) 4 H (0-1) % Sodium 135 L (140-148) mmol/L Potassium 3.4 L (3.6-5.2) mmol/L Chloride 101 (100-108) mmol/L Carbon Dioxide 26 (21-32) mmol/L Anion Gap 11.4 (5.0-14.0) mmol/L BUN 11 (7-18) mg/dL Creatinine 0.8 (0.6-1.0) mg/dL Est Cr Clr Drug Dosing 76.82 mL/min Estimated GFR (MDRD) > 60 (>60) Glucose 95 (74-106) mg/dL Calcium 7.6 L (8.5-10.1) mg/dL Total Bilirubin 0.8 (0.2-1.0) mg/dL AST 100 H (15-37) U/L ALT 44 (12-78) U/L Alkaline Phosphatase 46 (46-116) U/L Total Protein 5.4 L (6.4-8.2) g/dL Albumin 2.4 L (3.4-5.0) g/dL Globulin 3.0 (2.3-3.5) g/dL Albumin/Globulin Ratio 0.8 L (1.2-2.2) [place] Results - Last 24 hrs: Microbiology 05/01/19 21:35 Stool Culture - Preliminary Stool / Feces NORMAL ENTERIC ELÍAS 1 DAY Shiga Toxin I - Final NEGATIVE FOR SHIGA TOXIN 1 Shiga Toxin II - Final NEGATIVE FOR SHIGA TOXIN 2 REFERENCE RANGE: NEGATIVE Clostridioides difficile (PCR) - Final NEGATIVE CDIFF TOXIN 05/01/19 15:26 Urine Culture - Preliminary Urine, Catheterized MIXED POSITIVE ELÍAS DAY 1 05/01/19 12:40 Aerobic Blood Culture - Preliminary Blood - Venous - Lab Draw NO GROWTH AFTER 1 DAY Anaerobic Blood Culture - Preliminary NO GROWTH AFTER 1 DAY 05/01/19 12:45 Aerobic Blood Culture - Preliminary Blood - Venous - Iv Start NO GROWTH AFTER 1 DAY Anaerobic Blood Culture - Preliminary NO GROWTH AFTER 1 DAY Med Orders - Current: Current Medications Acetaminophen (Tylenol) 650 mg PO Q4H PRN PRN Reason: Pain (Mild 1-3)/fever Last Admin: 05/02/19 19:19 Dose: 650 mg Ampicillin Sodium/Sulbactam (Sodium 1.5 gm/ Sodium Chloride) 50 mls @ 100 mls/ hr IV Q6H [facility] Last Admin: 05/03/19 11:46 Dose: 100 mls/hr Doxycycline Hyclate 100 mg/ (Sodium Chloride) 100 mls @ 100 mls/hr IV Q12H [facility] Last Admin: 05/03/19 04:04 Dose: 100 mls/hr Sodium Chloride (Normal Saline) 1,000 mls @ 50 mls/hr IV ASDIRECTED [facility] Lactobacillus Rhamnosus (Culturelle) 1 cap PO BID [facility] Last Admin: 05/03/19 09:11 Dose: 1 cap Ondansetron HCl (Zofran) 4 mg IV Q4H PRN PRN Reason: Nausea/Vomiting Oxycodone HCl (Oxycodone) 5 mg PO Q4H PRN PRN Reason: Pain (moderate 4-6) Pantoprazole Sodium (Protonix) 40 mg PO ACBREAKFAST [facility] Last Admin: 05/03/19 07:57 Dose: 40 mg Sodium Chloride (Saline Flush) 10 ml FLUSH ASDIRECTED PRN PRN Reason: Keep Vein Open Discontinued Medications Enoxaparin Sodium (Lovenox) 40 mg SUBCUT Q24H [facility] Last Admin: 05/01/19 19:21 Dose: 40 mg Lactated Ringer's (Ringers, Lactated) 1,000 mls @ 999 mls/hr IV BOLUS ONE Stop: 05/01/19 13:38 Last Admin: 05/01/19 12:53 Dose: 999 mls/hr Lactated Ringer's (Ringers, Lactated) 1,000 mls @ 500 mls/hr IV BOLUS ONE Stop: 05/01/19 15:54 Last Admin: 05/01/19 13:58 Dose: 500 mls/hr Sodium Chloride (Normal Saline) 1,000 mls @ 125 mls/hr IV ASDIRECTED [facility] Last Admin: 05/02/19 12:21 Dose: 125 mls/hr Ketorolac Tromethamine (Toradol) 30 mg IVPUSH ONETIME ONE Stop: 05/01/19 14:24 Last Admin: 05/01/19 14:34 Dose: 30 mg Potassium Chloride (Klor-Con M20) 40 meq PO ONETIME ONE Stop: 05/02/19 10:01 Last Admin: 05/02/19 09:55 Dose: 40 meq Potassium Chloride (Klor-Con M20) 40 meq PO ONETIME ONE Stop: 05/02/19 17:01 Last Admin: 05/02/19 17:48 Dose: 40 meq Potassium Chloride (Klor-Con M20) 40 meq PO ONETIME ONE Stop: 05/03/19 09:01 Last Admin: 05/03/19 09:11 Dose: 40 meq Sodium Chloride (Saline Flush) 10 ml FLUSH ASDIRECTED PRN PRN Reason: Keep Vein Open Last Admin: 05/01/19 15:14 Dose: 10 ml - Exam General: Reports: Alert, Oriented, Cooperative, No Acute Distress Lungs: Reports: Clear to Auscultation, Normal Respiratory Effort Cardiovascular: Reports: Regular Rate, Regular Rhythm, No Murmurs GI/Abdominal Exam: Soft, No Organomegaly, Tender (Right upper quadrant). No: Distended, Guarding, Rigid, Rebound
== END 2019-05-03 13:50 | disposition home or self-care (01) | DRG 445 ==
LOC: JP.ED 11:33 → JP.MS 15:27
PROVIDERS: ADMIT Hospitalist; ATTEND Hospitalist
DX: K81.9 Cholecystitis, unspecified (principal); A77.49 Other ehrlichiosis; D69.6 Thrombocytopenia, unspecified; F41.9 Anxiety disorder, unspecified; G43.909 Migraine, unspecified, not intractable, without status migrainosus; H54.7 Unspecified visual loss; E86.0 Dehydration; R19.7 Diarrhea, unspecified
CPT/HCPCS: 36415; 76705; 80053; 81001; 83605; 83615; 83690; 83735; 84145; 85025; 85610; 86140; 87040; 87046; 87086; 87493; 87899; 89055; 99284; 99285-25; A9270-GY; G0480; J0287; J1650; J1885; J3490; J7030; J7050; J7120